=== PATIENT | male | born 1930 | race Caucasian/White ===

== ENCOUNTER → 2016-10-14 | Outpatient (CLI) | payer MEDICARE ==
[2016-04-01 11:00] VITALS: BP 108/54
[~2016-10-14] MED LIST: AMLO5TAB2 PO; ASPI-482 PO; ATOR10TA PO; BIOT25005 PO; CHOL10003 PO; DOCU-27 PO; LORA0.5T PO; METO-269 PO; MULT-208 PO; NITR0.4T6 SL; OMEG1CAP6 PO; OMEP20TA63 PO; ZOLP10TA PO
--- NOTE | 2016-10-15 08:20 | RAD ---
CT chest without IV contrast History: Follow-up lung cancer, no new symptoms. Comparison: None. Technique: Helical CT of the chest was performed without intravenous contrast. Axial, sagittal, and coronal reconstructions were obtained. One or more of the following individualized dose reduction techniques were utilized for the study: Automated exposure control Adjustment of mA and/or kV according to patient's size Use of iterative reconstruction technique. Findings: Evaluation of vascular structures and for lymphadenopathy, especially for hilar lymphadenopathy, is limited secondary to lack of intravenous contrast. Median sternotomy wires are present. Post CABG changes are seen. Coronary artery calcifications are present. No pericardial thickening is identified. Cardiac chambers do not appear enlarged. No mediastinal or convincing hilar lymphadenopathy is seen. There has been interval right upper lobectomy. Within the right upper lobe, now in the right upper hemithorax, there is a 4 mm soft tissue pulmonary nodule (axial image 15); this is not confidently identified on comparison study and may be new. There is a 3-4 mm soft tissue pulmonary nodule left lower lobe (axial image 40), unchanged. Scattered peripheral atelectasis versus scarring is seen in the right upper lobe and right middle lobe. No pneumothorax or pleural effusion is seen. The lateral periphery of the right hepatic lobe demonstrates interval development of 3.0 cm low-density mass. No suspicious osseous lesions are seen. Levoconvex scoliosis of the upper thoracic spine is seen. Impression: 1. Interval right upper lobectomy. 2. Right middle lobe demonstrates 4 mm soft tissue pulmonary nodule which is apparently new. Close interval follow-up is recommended. Additional unchanged left lower lobe pulmonary nodule. 3. Interval development of low-density right hepatic mass. Given history of malignancy, metastatic disease is suspected.
== END | disposition home or self-care (01) ==
LOC: CT 16:15
PROVIDERS: ATTEND Thoracic Surgery (Cardiothoracic Vascular Surgery)
DX: C34.11 Malignant neoplasm of upper lobe, right bronchus or lung (principal)
CPT/HCPCS: 71250

== ENCOUNTER → 2016-10-22 | Outpatient (CLI) | payer MEDICARE ==
[2016-04-01 11:00] VITALS: BP 108/54
--- NOTE | 2016-10-22 11:02 | RAD ---
FDG tumor localization scan, PET/CT, 10/22/2016: History: Lung cancer Following IV injection of 13.8 mCi of 18 F-FDG, imaging was performed from the skull base to the proximal thighs. The noncontrast CT component was performed for attenuation correction and anatomic localization purposes rather than for primary diagnosis. The patient's blood glucose level at the time of injection was 111 MG/DL. Comparison is made to a study from 03/19/2016. There is a 17 mm hypermetabolic skin lesion in the left temporal region along the superior margin of the anterior aspect of the left zygomatic arch. This was not evident on the previous study. There is a tiny hypermetabolic focus in the right subpectoral region, corresponding 2 a 6 mm nodule which was not evident on the previous study. This is probably a small lymph node. There is also a new small 13 x 7 mm hypermetabolic nodule in the epicardial fat along the right side of the heart and the anterior aspect of the right diaphragm. It demonstrates a maximum SUV of 4.6. There are 2 additional new small hypermetabolic foci along the right lateral margin of the heart, obscured on the CT images by artifacts arising from nearby pacing leads. The large right parahilar lung mass seen on the previous study has largely resolved. The CT component demonstrates 3 tiny right parahilar nodules. One of these nodules measures 6 mm and demonstrates low level FDG uptake. The lack of avid demonstrable uptake in these nodules is probably due to their small sizes. There is a new 3.3 cm low density lesion in the lateral aspect of the right lobe of the liver. It is markedly hypermetabolic demonstrating a maximum SUV of 10.7. GI tract and urinary tract activity is present in the abdomen and pelvis. No other hypermetabolic abdominal or pelvic lesion is seen. Physiologic uptake is seen in the gluteal and paraspinous muscles. IMPRESSION: 1. The patient's right parahilar neoplasm has markedly regressed with only a tiny residual pulmonary opacity at that level demonstrating low level FDG uptake. 2. New hypermetabolic nodules have developed in the right epicardial fat, along the right lateral margin of the heart and in the right subpectoral region compatible with metastatic disease. 3. New moderate size hypermetabolic hepatic mass suggesting metastatic disease. 4. New hypermetabolic skin lesion in the left anterior temporal region. Clinical correlation is suggested.
== END | disposition home or self-care (01) ==
LOC: PETSC 12:05
PROVIDERS: ATTEND Internal Medicine Hematology & Oncology
DX: C34.11 Malignant neoplasm of upper lobe, right bronchus or lung (principal)
CPT/HCPCS: 78815; A9552

== ENCOUNTER → 2016-11-09 | Outpatient (CLI) | payer MEDICARE ==
[~2016-11-09] VITALS: Ht 165.1 cm; Wt 59.0 kg
[2016-11-09] VITALS (10 sets, daily range): BP systolic 102–167; BP diastolic 46–77
[~2016-11-09] MED LIST changes: +LIDOCAINE 1% / SOD BICARB 8.4% 20 ML VIAL. IJ ONE; +MIDAZOLAM HCL/PF 2 MG/2 ML VIAL. IV ONE; +MIDAZOLAM HCL/PF 2 MG/2 ML VIAL. ONE; +fentaNYL PF VIAL 100 MCG/2 ML VIAL IM ONE; +fentaNYL PF VIAL 100 MCG/2 ML VIAL IV ONE; +fentaNYL PF VIAL 100 MCG/2 ML VIAL ONE
[2016-11-09 08:52] LABS: BASO # 0.1 x10^3/uL (0.0-0.2); BASO % 1 % (0-3); EOS % 3 % (0-3); HEMATOCRIT 35.1 % (39.0-53.0); HEMOGLOBIN 11.5 g/dL (13.0-17.5); LYMPH % 15 % (24-48); MEAN CORPUSCULAR HEMOGLOBIN 32 pg (25-35); MEAN CORPUSCULAR HGB CONC 33 g/dL (31-37); MEAN CORPUSCULAR VOLUME 98 fL (79-100); MONO % 12 % (0-9); NEUT % 69 % (31-73); PLATELET COUNT 218 x10^3/uL (140-400); RED CELL DISTRIBUTION WIDTH 14.2 % (11.5-14.5); WHITE BLOOD COUNT 6.9 x10^3/uL (4.0-11.0)
[2016-11-09 09:01] LABS: POTASSIUM 4.5 mmol/L (3.5-5.1)
[2016-11-09 09:27] LABS: PROTHROMBIN TIME PATIENT 12.4 SEC (11.7-14.0)
--- NOTE | 2016-11-09 10:37 | PDOC ---
MODERATE SEDATION ASSESSMENT RISKS/ALTERNATIVES Risks/Alternatives Risks and alternatives of this type of sedation and procedure discussed with: RISK/ALTERNATIVES: Patient H & P ON CHART H & P H & P on chart and reviewed for co-morbid conditions and appropriate labs. H&P ON CHART: Yes STATUS PREG STATUS ASSESSED: N/A MEDS/ALLERGIES REVIEWED Meds/Allergies Reviewed Medications and Allergies including time and route of recently administered narcotics and sedatives. MEDS/ALLERGIES REVIEWED: Yes ASA RATING ASA RATING: III AIRWAY ASSESSMENT Airway Assessment Airway patency, oral function limitations, presence of caps, crowns, dentures, partials, and ability to extend neck assessed. AIRWAY ASSESSMENT: Yes MALLAMPATI SCORE MALLAMPATI SCORE: II PRE-SEDATION ASSESSMENT PRE-SEDATION ASSESSMENT: Yes BECKY KUO MD November 09, 2016 10:37
--- NOTE | 2016-11-09 10:40 | PDOC ---
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 S/P rt upper lobectomy. Now with PET positive liver lesion, c/w met disease. Image guided liver lesion bx requested for tumor genetic markers. Post-Procedure Diagnosis Post-Procedure Diagnosis Same Procedure Performed Procedure Performed CT guided bx right lobe liver lesion Type of Anesthesia Type of Anesthesia Local + Mod sedation Estimated Blood Loss EBL: Trace Specimens Specimans 5 18G core bx to path in formalin Condition of Patient Condition of Patient Stable. No apparent complication. Disposition Disposition Home from [facility] post recovery, if no problems. F/u with Dr Hays. Full report to follow. BECKY KUO MD November 09, 2016 10:40
--- NOTE | 2016-11-09 10:47 | PDOC1 ---
History and Physical Date of Procedure Date of Admission 11/09/[address] guided right lobe liver lesion bx Indication Indication 86 YO male with right upper lung adenoCA, s/p right upper lobectomy 03/21/16. Now with PET positive metastases, including rt lobe liver lesion. Image guided liver lesion bx requested for tumor genetic markers. Past Medical History Past Medical History See Nursing Pre procedure PMH Past Surgical History Past Surgical History See Nursing Pre procedure PSH---includes right upper lobectomy 03/26/16. Current Medications Current Medications Current Medications Fentanyl Citrate (Fentanyl 2ml Vial) 100 mcg STK-MED ONCE .ROUTE ; Start at 09:54; Stop 11/09/16 at 09:55; Status DC Midazolam HCl (Versed) 2 mg STK-MED ONCE .ROUTE ; Start 11/09/16 at 09:54; Stop 11/09/16 at 09:55; Status DC Lidocaine/Sodium Bicarbonate (Buffered Lidocaine 1%) 20 ml STK-MED ONCE IJ ; Start 11/09/16 at 09:56; Stop 11/09/16 at 09:57; Status DC Lidocaine/Sodium Bicarbonate (Buffered Lidocaine 1%) 20 ml 1X ONCE IJ Last administered on 11/09/16t 10:23; Start 11/09/16 at 10:15; Stop 11/09/16 at 10:16 ; Status DC Fentanyl Citrate (Fentanyl 2ml Vial) 100 mcg 1X ONCE IM ; Start 11/09/16 at 10: 15; Stop 11/09/16 at 10:26; Status DC Midazolam HCl (Versed) 2 mg 1X ONCE IV Last administered on 11/09/16t 10:24; Start 11/09/16 at 10:15; Stop 11/09/16 at 10:16; Status DC Fentanyl Citrate (Fentanyl 2ml Vial) 75 mcg 1X ONCE IV ; Start 11/09/16 at 10: 30; Stop 11/09/16 at 10:31; Status DC Active Scripts Active Reported Colace (Docusate Sodium) 100 Mg Capsule 100 Mg PO HS Fish Oil 1,000 Mg Capsule ([place]-3 Fatty Acids/Fish Oil) 1 Each Capsule 4 Each PO DAILY Lipitor (Atorvastatin Calcium) 10 Mg Tablet 0.5 Tab PO DAILY Vitamin D3 (Cholecalciferol (Vitamin D3)) 1,000 Unit Tablet 1 Tab PO DAILY Toprol Xl (Metoprolol Succinate) 50 Mg Tab.er.24h 1 Tab PO BID Lorazepam 0.5 Mg Tablet 1 Tab PO BID PRN Multi-Day Vitamins (Multivitamin) 1 Each Tablet 1 Tab PO DAILY Ambien (Zolpidem Tartrate) 10 Mg Tablet 10 Mg PO HS PRN NITROGLYCERIN SubLingual (Nitroglycerin) 0.4 Mg Tab.subl 0.4 Mg SL PRN Q5MIN PRN Prilosec Otc (Omeprazole Magnesium) 20 Mg Tablet.dr 20 Mg PO DAILY Allergies Allergies: Coded Allergies: diltiazem (Verified Allergy, Intermediate, 03/26/16) Physical Exam Vital Signs Vital Signs Date Time Temp Pulse Resp B/P (MAP) Pulse Ox O2 Delivery O2 Flow Rate FiO2 11/09/16 10:20 78 11 98 Nasal Cannula 2.0 11/09/16 09:04 98.3 146/68 (94) 98.3 Lungs: Clear to auscultation Heart: Regular rate Psych/Mental Status: Mental status NL Diagnostic Data/Imaging Images PMC PET scan from 10/22/16 personally reviewed. Assessment Assessment 86 YO male s/p right upper lobectomy for adenoCA of lung. Now with PET revealing metastatic disease, including 3.3 cm lesion within right lobe liver. Image guided bx requested for genetic markers. Problems: Plan Plan CT guided bx PET positive right lobe liver lesion BECKY KUO MD November 09, 2016 10:47
--- NOTE | 2016-11-10 06:47 | RAD ---
CT-guided biopsy of PET positive right lobe liver lesion Indication: 86-year-old male with history of lung adenocarcinoma, status post right upper lobectomy in March of last year. Recent [facility] PET scan from 10/23/2015 revealed hypermetabolic lesions consistent with metastatic disease, including a 3.5 cm lesion within right lobe of liver. Image guided biopsy of the right lobe liver lesion has been requested for genetic tumor markers. Anesthesia: 21 minutes moderate sedation was provided utilizing a total of 1.5 mg Versed and 75 mcg fentanyl, IV. The patient was appropriately monitored by a qualified independent observer throughout the time of moderate sedation. Consent: The procedure was explained in its entirety to the patient and/or the patient's designated regional sales representative by a member of the treatment team. This included a discussion of risks and benefits and acceptable alternatives to the procedure, as well as expected consequences of no treatment at all. Discussion of risks included, but was not limited to, those that are most frequent and those that are rare, but possibly severe or life-threatening, as well as the possibility of unforeseen complications. Procedure: Informed consent was obtained from the patient. He was placed supine on the CT scanner. Preliminary noncontrast CT images were obtained through liver. Those images confirmed the presence of a hypodense subcapsular lesion measuring 35 mm in size within lateral aspect right lobe of liver. An overlying right lateral skin site suitable for CT-guided biopsy of the lesion was selected and marked. That area was prepped and draped in usual sterile fashion. Moderate sedation was provided with IV Versed and fentanyl. Using aseptic technique, local anesthesia, and CT guidance, a 17-gauge guide needle was successfully advanced into peripheral aspect of the hypodense lesion. A total of 5 18-gauge core biopsy samples were then obtained. Biopsy material was submitted in formalin to pathology. Hemostasis was achieved with autologous clot introduced through the biopsy guide needle, which was then removed. Patient tolerated the procedure well without apparent complication. Completion CT images revealed no evidence of significant postbiopsy bleeding. Impression: Successful, uneventful CT-guided biopsy of hypodense, PET positive, right lobe liver lesion, as described. PQRS Compliance Statement: One or more of the following individualized dose reduction techniques was utilized for this procedure: 1. Automated exposure control. 2. Adjustment of MA and/or KV according to patient size. 3. Iterative reconstruction technique.
== END | disposition home or self-care (01) ==
LOC: INTRAD 08:16
PROVIDERS: ATTEND Internal Medicine Hematology & Oncology
DX: K76.9 Liver disease, unspecified (principal); I10 Essential (primary) hypertension; E78.00 Pure hypercholesterolemia, unspecified; I25.10 Atherosclerotic heart disease of native coronary artery without angina pectoris; M19.90 Unspecified osteoarthritis, unspecified site; Z85.118 Personal history of other malignant neoplasm of bronchus and lung; Z98.41 Cataract extraction status, right eye; Z98.42 Cataract extraction status, left eye; Z72.89 Other problems related to lifestyle; Z72.0 Tobacco use; Z87.891 Personal history of nicotine dependence
CPT/HCPCS: 36415; 47000; 77012; 80048; 85027; 85610; J2250; J3010

== ENCOUNTER → 2017-01-28 | Outpatient (CLI) | payer MEDICARE ==
[2016-11-09 12:18] VITALS: BP 125/67
[~2017-01-28] MED LIST changes: -BIOT25005 PO; +BIOT25006 PO; +DOCU-109 PO; -DOCU-27 PO; -LIDOCAINE 1% / SOD BICARB 8.4% 20 ML VIAL. IJ ONE; -MIDAZOLAM HCL/PF 2 MG/2 ML VIAL. IV ONE; -MIDAZOLAM HCL/PF 2 MG/2 ML VIAL. ONE; +NITR0.4T22 SL; -NITR0.4T6 SL; -fentaNYL PF VIAL 100 MCG/2 ML VIAL IM ONE; -fentaNYL PF VIAL 100 MCG/2 ML VIAL IV ONE; -fentaNYL PF VIAL 100 MCG/2 ML VIAL ONE
--- NOTE | 2017-01-28 12:22 | RAD ---
Indication restaging lung cancer. PET/CT was performed from the skull through the proximal thigh.. CT was performed primarily for attenuation and localization purposes as opposed to primary diagnostic purposes. Note is made of a previous examination 10/22/2016. 14.2 mCi of FDG was administered. Blood sugar during the examination was ordered 130. On CT the visualized brain appears unremarkable. No significant finding is seen in the neck. There is a small mass in the right epicardial fat pad.. No dominant soft tissue mass in either lung is seen. In the abdomen there is a right renal cyst. There is a mass in the right lobe of the liver but smaller than on the previous exam compatible with a positive therapeutic response. No new finding is seen in the abdomen or pelvis. There is probable cholelithiasis On PET the FDG is physiologically distributed in the brain. No abnormal activity is seen in the neck. The small mass in the epicardial fat pad is mildly FDG avid. Maximum SUV 3.5. This is similar to the previous examination where the maximum SUV was 3.2. The mass in the right lobe of the liver demonstrates a maximum SUV of 7.3 representing improvement relative to the previous exam when the corresponding member was 10.6. This is compatible with a positive therapeutic response. A new finding in the abdomen or pelvis is not seen. Note is made of considerable brown fat in the arms upper back and in the pelvis. IMPRESSION: No evidence of tumor recurrence in the chest. Mildly avid lymph node in the right epicardial fat pad is nonspecific. Hepatic mass, compatible with metastatic disease, is smaller and less FDG avid than on the previous exam compatible with a favorable therapeutic response. New metastatic disease is not seen
== END | disposition home or self-care (01) ==
LOC: PETSC 08:42
PROVIDERS: ATTEND Internal Medicine Hematology & Oncology
DX: C34.11 Malignant neoplasm of upper lobe, right bronchus or lung (principal); R16.0 Hepatomegaly, not elsewhere classified
CPT/HCPCS: 78815; A9552

== ENCOUNTER → 2017-06-24 | Outpatient (CLI) | payer MEDICARE | END | disposition home or self-care (01) | LOC: PETSC 08:03 | DX: C34.11 Malignant neoplasm of upper lobe, right bronchus or lung (principal); K80.20 Calculus of gallbladder without cholecystitis without obstruction; K76.9 Liver disease, unspecified; J01.00 Acute maxillary sinusitis, unspecified; N28.1 Cyst of kidney, acquired; R53.83 Other fatigue | CPT/HCPCS: 78815; A9552 ==

== ENCOUNTER → 2017-09-16 | Outpatient (CLI) | payer MEDICARE | END | disposition home or self-care (01) | LOC: PETSC 09:28 | DX: C34.11 Malignant neoplasm of upper lobe, right bronchus or lung (principal); J98.11 Atelectasis; I71.4 Abdominal aortic aneurysm, without rupture; N28.1 Cyst of kidney, acquired; I25.10 Atherosclerotic heart disease of native coronary artery without angina pectoris; K80.20 Calculus of gallbladder without cholecystitis without obstruction; Z98.890 Other specified postprocedural states | CPT/HCPCS: 78815; A9552 ==

== ENCOUNTER → 2018-01-20 | Outpatient (CLI) | payer MEDICARE | END | disposition home or self-care (01) | LOC: PETSC 07:26 | DX: J32.0 Chronic maxillary sinusitis (principal); N28.1 Cyst of kidney, acquired; C34.11 Malignant neoplasm of upper lobe, right bronchus or lung; I12.9 Hypertensive chronic kidney disease with stage 1 through stage 4 chronic kidney disease, or unspecified chronic kidney disease; N18.3 Chronic kidney disease, stage 3 (moderate); E78.5 Hyperlipidemia, unspecified; Z87.891 Personal history of nicotine dependence | CPT/HCPCS: 78815; A9552 ==

== ENCOUNTER 2018-02-21 09:09 | Emergency (ER) | payer MEDICARE ==
[~2018-02-21] VITALS: Ht 165.1 cm; Wt 61.9 kg
[~2018-02-21 09:09] MED LIST changes: -AMLO5TAB2 PO; +AMLO5TAB7 PO
[2018-02-21 09:16] VITALS: BP 168/75
[2018-02-21] MEDS ORDERED: SODIUM PHOSPHATES 19/7GM 133 ML ENEMA. PR ONE (09:30)
--- NOTE | 2018-02-21 09:45 | PHYS DOC ---
Past Medical History Past Medical History: Anxiety, Cancer, GERD, High Cholesterol, Hypertension, Other Additional Past Medical Histor: BLADDER/COLON/LIVER/LUNG CA. Past Surgical History: Cancer Surgery, Coronary Bypass Surgery, Pacemaker, Tonsillectomy, Other Additional Past Surgical Histo: ADENOIDS,COLON RESECTION,R UPPER LOBE REMOVAL, BLADDER Alcohol Use: None Drug Use: None Adult General Chief Complaint Chief Complaint: CONSTIPATION HPI HPI Patient is a 87 year old male who presents with constipation. Patient states his last normal bowel movement was Wednesday, 5 days earlier. He tried to use some laxative-type medication on and Wednesday and Wednesday but could not have a bowel movement. He presents the ER today complaining of the need to defecate but the inability to do so. He does not have abdominal pain. No fever or chills. No nausea or vomiting. He has otherwise been at baseline health with no recent illness. Review of Systems Review of Systems Constitutional: Denies fever HENT: Denies nasal congestion Respiratory: Denies cough or shortness of breath Cardiovascular: No additional information not addressed in HPI GI: Denies abdominal pain Integument: Denies rash or skin lesions Neurologic: Denies headache All other systems were reviewed and found to be within normal limits, except as documented in this note. Current Medications Current Medications Current Medications Medications (Trade) Dose Ordered Sig/Grace Start Time Stop Time Status Last Admin Dose Admin Sodium Monofluorophosphate (Fleet Adult) 133 ml 1X ONCE 02/21/18 09:30 02/21/18 09:31 DC 02/21/18 09:39 133 ML Allergies Allergies Allergies Coded Allergies Type Severity Reaction Last Updated Verified diltiazem Allergy Intermediate 03/26/16 Yes niacin Allergy Unknown 02/21/18 Yes ramipril Allergy Unknown 02/21/18 Yes Physical Exam Physical Exam Constitutional: Well developed, well nourished, no acute distress, non-toxic appearance. [] HENT: Normocephalic, atraumatic, bilateral external ears normal, oropharynx moist, no oral exudates, nose normal. [] Eyes: PERRLA, EOMI, conjunctiva normal, no discharge. [] Neck: Normal range of motion, no tenderness, supple, no stridor. [] Cardiovascular:Heart rate regular rhythm, no murmur [] Lungs & Thorax: Bilateral breath sounds clear to auscultation [] Abdomen: Bowel sounds normal, soft, no tenderness, no masses, no pulsatile masses. [] Skin: Warm, dry, no erythema, no rash. [] Back: No tenderness, no CVA tenderness. [] Extremities: No tenderness, no cyanosis, no clubbing, ROM intact, no edema. [] Neurologic: Alert and oriented X 3, normal motor function, normal sensory function, no focal deficits noted. [] Psychologic: Affect normal, judgement normal, mood normal. [] Current Patient Data Vital Signs Vital Signs Date Time Temp Pulse Resp B/P (MAP) Pulse Ox O2 Delivery O2 Flow Rate FiO2 02/21/18 09:16 98.2 103 20 168/75 (106) 99 Room Air 98.2 EKG EKG [] Radiology/Procedures Radiology/Procedures [] Course & Med Decision Making Course & Med Decision Making Pertinent Labs and Imaging studies reviewed. (See chart for details) 09:25: Patient is seen and examined. Normal examination including of the abdomen. Fleets enema ordered. 10:25: Patient has large bowel movement after Fleet's enema. He feels improved. Plan today is for discharge home. He is placed on a bowel regimen consisting of docusate 100 mg twice daily. Senna 8.6 mg, take 2 tablets 3 times daily scheduled until bowels are near-normal are loose. He is also prescribed fleets enema to use at home if these other medications do not relieve his symptoms. Patient is agreeable to plan of care. He is advised to follow-up with his primary care doctor in the future or return to the ER for any new or worsening symptoms. Dragon Disclaimer Dragon Disclaimer This electronic medical record was generated, in whole or in part, using a voice recognition dictation system. Departure Departure Referrals: LENNY ATKINS MD (PCP) Scripts Solange MuellerMPrafulB/Nathalia MillsBa (FLEET ENEMA) 133 Ml Enema 133 ML RC UD, #1 EACH 2 Refills Use the fleets enema as needed for constipation when the other medications prescribed are not working. Prov: NOELLE ALEJANDRO DO 02/21/18 Sennosides (SENNA) 8.6 Mg Tablet 8.6 MG PO UD, #30 TAB 1 Refill Take 2 tablets three times daily until you are having loose or near-normal bowel movements, then decrease to use as needed for constipation Prov: NOELLE ALEJANDRO DO 02/21/18 Docusate Sodium (COLACE) 100 Mg Capsule 100 MG PO BID, #60 CAP 1 Refill Prov: NOELLE ALEJANDRO DO 02/21/18 NOELLE ALEJANDRO DO Feb 21, 2018 09:45
[2018-02-21] MEDS ORDERED: NA P133E2 RC (10:26)
[2018-02-21] MEDS ORDERED: DOCU-109 PO (10:26)
[2018-02-21] MEDS ORDERED: SENN-79 PO (10:26)
== END 2018-02-21 10:50 | disposition home or self-care (01) ==
LOC: ER 09:09
DX: K59.00 Constipation, unspecified (principal); K21.9 Gastro-esophageal reflux disease without esophagitis; E78.00 Pure hypercholesterolemia, unspecified; I10 Essential (primary) hypertension; Z95.5 Presence of coronary angioplasty implant and graft; Z95.0 Presence of cardiac pacemaker; Z90.49 Acquired absence of other specified parts of digestive tract; Z88.8 Allergy status to other drugs, medicaments and biological substances; Z98.890 Other specified postprocedural states
CPT/HCPCS: 99284

== ENCOUNTER → 2018-03-24 | Outpatient (CLI) | payer MEDICARE ==
[~2018-03-24] MED LIST changes: +NA P133E2 RC; +SENN-79 PO
--- NOTE | 2018-03-24 11:58 | RAD ---
FDG tumor localization scan, PET/CT, 03/24/2018: History: Follow-up lung cancer, restaging Following IV injection of 14.8 mCi of 18 F-FDG, imaging was performed from the skull base to the proximal thighs. The noncontrast CT component was performed for attenuation correction and anatomic localization purposes rather than for primary diagnosis. The patient's blood glucose level at the time of injection was 132 MG/DL. Comparison is made to a study from 01/20/2018. Physiologic activity is evident in the neck. No hypermetabolic neck abnormality is seen. There is a hypermetabolic right subpectoral nodule. It currently measures approximately 11 mm in width compared to a measurement of 16 mm on the 01/20/2018 study. It demonstrates a maximum SUV of 2.3 compared to a value of 16.6 on the previous study. There is additional small focus of increased metabolic activity in the lateral right mid chest probably involving the pleura or chest wall. No definite corresponding mass is seen. The maximum SUV is 2.9. In retrospect this was clearly visible on the previous study with a maximum SUV of 2.3. No hypermetabolic pulmonary or mediastinal abnormality is seen. There are scattered unchanged linear parenchymal opacities compatible with scars. Increased activity in the region of the patient's left-sided pacemaker generator is compatible with attenuation correction artifact. There is a hypermetabolic mass in the lateral aspect of the right lobe of the liver which measures 4.0 cm in greatest diameter on the current CT images compared to a measurement of 3.3 cm on the previous study. It demonstrates a maximum SUV of 16.5 compared to a measurement of 13.7 on the previous study. Just superior to the level this hepatic mass there are 2 small hypermetabolic foci projected along the surface of the right lobe of the liver. Due to normal motion at the level the diaphragm it is not clear whether these involve the surface of the liver, the adjacent diaphragm or pleura. These are faintly visible in retrospect on the previous study and have progressed. Normal GI tract and urinary tract activity is present in the abdomen and pelvis. No intra-abdominal or pelvic hypermetabolic mass is seen. Again noted is increased activity involving the left lateral gluteal musculature. This has increased since the previous study. No underlying mass is evident. This likely represents an injection site. Incidental note is made of cholelithiasis. There are surgical sutures related to the rectosigmoid colon. There is extensive calcific plaquing of the aorta and its branches including the coronary arteries. There are ongoing paranasal sinus opacities compatible with chronic sinusitis. IMPRESSION: 1. The hypermetabolic right subpectoral nodule has decreased in size and is slightly less hypermetabolic compared to the 01/20/2018 exam. 2. The liver lesion has increased in size and the degree of FDG uptake. 3. Worsening small hypermetabolic foci along the surface of the right lobe of the liver and right pleura as described above.
== END | disposition home or self-care (01) ==
LOC: PETSC 12:09
PROVIDERS: ATTEND Internal Medicine Hematology & Oncology
DX: K80.20 Calculus of gallbladder without cholecystitis without obstruction (principal); K76.9 Liver disease, unspecified; Z85.118 Personal history of other malignant neoplasm of bronchus and lung
CPT/HCPCS: 78815; A9552

== ENCOUNTER → 2018-05-26 | Outpatient (CLI) | payer MEDICARE ==
[~2018-05-26] MED LIST changes: -SENN-79 PO; +SENN-80 PO
--- NOTE | 2018-05-26 11:30 | RAD ---
FDG tumor localization scan, PET/CT, 05/26/2018: History: Restaging lung and colon cancer Following IV injection of 13.9 mCi of 18 F-FDG, imaging was performed from the skull base to the proximal thighs. The noncontrast CT component was performed for attenuation correction and anatomic localization purposes rather than for primary diagnosis. The patient's blood glucose level at the time of injection was 123 MG/DL. Comparison is made to a study from 03/24/2018. Physiologic activity is evident in the neck. The subpectoral nodule in the right upper chest has increased in size. It is partially obscured by streak artifacts on the CT component but appears to measure only 16 mm. It is hypermetabolic with a maximum SUV of 25, compared to a value of approximately 10 on the previous study. There is a tiny adjacent hypermetabolic focus involving the chest wall just posteromedial to the subpectoral nodule. It demonstrates a maximum SUV of approximately 3, similar to that seen on the previous study. No abnormal pulmonary FDG uptake is seen. There is an attenuation correction artifact along the left anterior chest wall adjacent to a transvenous pacing device. No hypermetabolic mediastinal adenopathy is evident. Normal GI tract and urinary tract activity is present in the abdomen and pelvis. The hypermetabolic lesion in the lateral aspect of the right lobe of liver appears to have increased slightly in size. It demonstrates a maximum SUV of 20 compared to a value of 16.5 on the previous study. No new hepatic abnormality is detected. There are 2 hypermetabolic foci along the lateral margin of the right lobe of the liver near and just superior to this hypermetabolic liver lesion. It remains unclear whether these lie on the surface of the liver or within the pleura or adjacent chest wall, due to normal diaphragmatic motion producing difficulties in precise registration. The degree of FDG uptake in these lesions has increased slightly with a maximum SUV of 5.7 compared to value of 5.0 on the previous study. Incidental CT findings include the presence of fluid and debris in the right maxillary sinus compatible with sinusitis. There is considerable patient motion artifact on the CT component. There is an infrarenal abdominal aortic aneurysm measuring approximately 3.4 cm in width. IMPRESSION: 1. Interval increase in size and hypermetabolic activity of the right subpectoral nodule since 05/26/2018. 2. The liver lesion has also increased slightly in size and the degree of FDG uptake. 3. Small hypermetabolic lesions along the right lateral margin of the liver persist with slightly greater FDG uptake than on the previous study.
== END | disposition home or self-care (01) ==
LOC: PETSC 07:16
PROVIDERS: ATTEND Internal Medicine Hematology & Oncology
DX: I71.4 Abdominal aortic aneurysm, without rupture (principal); K76.89 Other specified diseases of liver; R91.1 Solitary pulmonary nodule; R53.83 Other fatigue; Z85.118 Personal history of other malignant neoplasm of bronchus and lung; Z85.038 Personal history of other malignant neoplasm of large intestine
CPT/HCPCS: 78815; A9552

== ENCOUNTER → 2018-09-08 | Outpatient (CLI) | payer MEDICARE ==
[~2018-09-08] MED LIST changes: +ACET500T68 PO; +AMLO5TAB10 PO; -AMLO5TAB7 PO; +ASCO500C9 PO; +FOLI1TAB16 PO; +ONDA8TAB9 PO; +VITA1TAB19 PO; +ZOLP5TAB PO
--- NOTE | 2018-09-08 13:23 | RAD ---
PET ONCOLOGY CLINICAL INDICATION: Lung cancer. Follow-up at. FDG PET-CT of the Body TECHNIQUE: The patient received an IV injection of 15 mCi 18F-FDG in the right antecubital fossa . After an initial uptake phase of approximately 60-90 minutes, a CT scan without oral contrast, without IV contrast was acquired. Subsequently, positron emission tomography images from the skull base to mid thigh were obtained. CT, PET and fused images were reconstructed in transaxial, coronal, and sagittal projections and interpreted from a workstation. The patient's plasma glucose was 122 mg/dl. PRIOR STUDIES: 05/26/2018 CORRELATIVE STUDIES: There are no appropriate correlative studies FINDINGS: CT: Limited exam due to lack of IV contrast. Noncontrast appearance through the head and neck within normal limits. No enlarged axillary or mediastinal adenopathy. Evaluation of hilar lymphadenopathy is limited due to lack of IV contrast. Heart is normal in size with no pericardial or pleural effusion. Pacemaker leads are seen in the right heart. Diffuse atherosclerotic disease seen of the aorta. Motion artifact is seen in the lungs abutting optimal evaluation. No apparent focal mass or nodule is seen. Interval increase in the size of right anterolateral chest wall soft tissue nodule measuring 2.7 x 2.4 cm, previously 2.0 x 1.4 cm. Interval increase in the size of right hepatic lobe mass measuring 5.0 x 4.0 cm, previously 4.0 x 2.6 cm. Noncontrast appearance of the spleen, gallbladder, pancreas, adrenals within normal limits. Simple cyst is seen in the right kidney measuring 4.0 cm. Diffuse atherosclerotic disease of the abdominal aorta. No enlarged retroperitoneal or pelvic adenopathy. No free pelvic fluid or ascites. No bowel obstruction. Stable partial opacification of the right maxillary sinus. No suspicious bony lesion. Urinary bladder within normal limits. Anastomotic sutures are seen in the sigmoid colon. Questionable 1.7 cm lesion is seen in the right occipital lobe. PET: Increased metabolic activity seen in the right anterolateral chest wall nodule measuring 18 SUV. Mild increased metabolic activity is seen in the pleural-based nodule in the right upper lobe posterior to the right chest wall nodule with SUV max of 3.3. Increased metabolic activity in the Right hepatic lobe lesion with SUV max of 13. Increased metabolic activity in the Manny hepatis lymph node with SUV max of 8. Increased focal metabolic activity in the posterior medial right occipital lobe which corresponds to a questionable masslike lesion with SUV max of 15. IMPRESSION: 1. Interval increase in the size of right chest wall nodule and right hepatic lobe lesion both demonstrating high metabolic activity as described above. 2. Focal activity in the right occipital lobe with questionable mass on the CT highly concerning for brain metastasis. Electronically signed by: Lucio Meneses DO (09/08/2018 1:20 PM) [facility]
== END | disposition home or self-care (01) ==
LOC: PETSC 11:00
PROVIDERS: ATTEND Internal Medicine Hematology & Oncology
DX: C34.11 Malignant neoplasm of upper lobe, right bronchus or lung (principal); I70.0 Atherosclerosis of aorta
CPT/HCPCS: 78815; A9552

== ENCOUNTER → 2018-09-19 | Outpatient (CLI) | payer MEDICARE ==
[~2018-09-19] VITALS: Ht 165.1 cm; Wt 60.3 kg
[~2018-09-19] MED LIST changes: +CONTRAST GIVEN. MC PRN; +HYDROmorphone 2 MG/ML VIAL IV PRN; +IOHEXOL 300 MG/ML 100ML VIAL. IV ONE; +IV RINGERS,LACTATED 1000ML 1,000 ML IV SCH; +LIDOCAINE 1% PF 2 ML VIAL. ID PRN; +MORPHINE SULFATE 2 MG/ML VIAL. IV PRN; +ONDANSETRON PF 4 MG/2 ML VIAL. IV PRN; +PROCHLORPERAZINE 10 MG/2 ML VIAL. IV PRN; +SODIUM BICARBONATE VIAL 150 MEQ in IV STERILE WATER 1,000 ML IV ONE; +fentaNYL PF VIAL 100 MCG/2 ML VIAL IV PRN
[2018-09-19 09:21] VITALS: BP 146/76
--- NOTE | 2018-09-19 12:10 | RAD ---
CT of the head with without contrast, 09/19/2018: HISTORY: Lung cancer, possible brain metastasis Multidetector CT imaging was performed prior to and following an IV bolus injection of iodinated contrast material. The study is correlated with the PET/CT exam of 09/08/2018. There is mild cerebral atrophy. The ventricles are within normal limits in size. There is no shift of the midline structures. A small lucency in the right thalamus is compatible with an old lacunar infarct. On the precontrast scans there is a 2 cm nodule in the posterior medial aspect of the right occipital lobe which is of slightly higher density than the adjacent brain. There is mild adjacent deep white matter lucency compatible with vasogenic edema. The occipital horn of the right lateral ventricle is smaller than on the left. This corresponds in location to the hypermetabolic nodule seen on the recent PET exam. On the arterial phase CT images there is only slight enhancement of this lesion. A hypovascular metastasis is suspected. No other intra-axial or extra-axial mass is identified. There is moderate debris in the right maxillary sinus. There is mild mucosal thickening in both ethmoid sinuses. IMPRESSION: 1. Faint right occipital lobe lesion corresponding to the hypermetabolic lesion seen on the recent PET/CTs exam. A cerebral metastasis is most likely. An infectious or rarely, a subacute ischemic process is less likely. CT follow-up is suggested. Delayed postcontrast scans may better delineate this lesion. 2. Old right thalamic lacunar infarct. 3. Paranasal sinusitis with dominant involvement of the right maxillary sinus. PQRS Compliance Statement: One or more of the following individualized dose reduction techniques were utilized for this examination: 1. Automated exposure control 2. Adjustment of the mA and/or kV according to patient size 3. Use of iterative reconstruction technique Electronically signed by: Zurdo Delgado MD (09/19/2018 12:07 PM) [facility]
[2018-09-19 13:01] VITALS: BP 102/55
[2018-09-19 14:43] VITALS: BP 129/63
[2018-09-19 15:03] VITALS: BP 124/64
--- NOTE | 2018-09-19 15:10 | NUR ---
Pt VSS. Pt denies any pain or sob. Left FA IV dc'd with no complications, tip intact. Pt walked to out patient entrance.
== END | disposition home or self-care (01) ==
LOC: SURG 08:01
PROVIDERS: ATTEND Internal Medicine Hematology & Oncology
DX: G31.89 Other specified degenerative diseases of nervous system (principal); J32.9 Chronic sinusitis, unspecified; C34.11 Malignant neoplasm of upper lobe, right bronchus or lung
CPT/HCPCS: 70470; Q9967

== ENCOUNTER → 2018-11-10 | Outpatient (CLI) | payer MEDICARE ==
[2018-09-19 15:03] VITALS: BP 124/64
[~2018-11-10] MED LIST changes: -CONTRAST GIVEN. MC PRN; -HYDROmorphone 2 MG/ML VIAL IV PRN; -IOHEXOL 300 MG/ML 100ML VIAL. IV ONE; -IV RINGERS,LACTATED 1000ML 1,000 ML IV SCH; -LIDOCAINE 1% PF 2 ML VIAL. ID PRN; -MORPHINE SULFATE 2 MG/ML VIAL. IV PRN; -ONDANSETRON PF 4 MG/2 ML VIAL. IV PRN; -PROCHLORPERAZINE 10 MG/2 ML VIAL. IV PRN; -SODIUM BICARBONATE VIAL 150 MEQ in IV STERILE WATER 1,000 ML IV ONE; -fentaNYL PF VIAL 100 MCG/2 ML VIAL IV PRN
--- NOTE | 2018-11-10 10:16 | RAD ---
FDG tumor localization scan, PET/CT, 11/10/2018: History: Restaging lung cancer Following IV injection of 14.7 mCi of 18 F-FDG, imaging was performed from the skull base to the proximal thighs. The noncontrast CT component was performed for attenuation correction and anatomic localization purposes rather than for primary diagnosis. The patient's blood glucose level at the time of injection was 121 MG/DL. Comparison is made to a study from 09/08/2018. There is a persistent hypermetabolic mass in the right occipital lobe posteriorly demonstrating a maximum SUV of 16.5. A similar appearance was present on the previous study. There is a persistent hypermetabolic subpectoral nodule on the right demonstrating a maximum SUV of 21.3. Its maximum SUV on the previous study was 18. It is of similar size when compared to the previous study. There is a nearby small hypermetabolic pulmonary nodule again noted. An additional hypermetabolic pleural nodule is present located posterolaterally in the right lower chest. The maximum SUV of this posterolateral nodule is 4.9. These pleural nodules are more prominent than on the previous study. A large hypermetabolic mass in the lateral aspect of the right lobe of the liver has increased in size. Its maximum SUV is currently 23 compared to a value of 13 on the previous study. There are a couple of tiny nearby mildly hypermetabolic pleural foci. There is a hypermetabolic focus at the portacaval level. It appears to correspond to an enlarged portacaval lymph node. It has increased in size and now demonstrates a maximum SUV of 18 compared to a value of 8 on the previous study. Normal GI tract and urinary tract activity is present in the abdomen and pelvis. No additional hypermetabolic metabolic abdominal or pelvic lesion is seen. Incidental CT findings include extensive calcific plaquing of the aorta and its branches including the coronary arteries. A small infrarenal abdominal scanner them is again noted. 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
--- NOTE | 2018-11-10 16:36 | RAD ---
CT of the head without contrast, 11/10/2018: HISTORY: Brain lesion Multidetector CT imaging was performed without IV contrast as requested. This limits the evaluation of brain lesions. There is cerebral atrophy. The ventricles are within normal limits in size. There is no shift of the midline structures. A small lucency in the right thalamus is compatible with an old infarct. Decreased density in the medial aspect of the right occipital lobe is unchanged and again suggests vasogenic edema. A small dense peripheral posteromedial nodule measuring approximately 2 cm in greatest diameter is again identified and is unchanged. This is best delineated on axial image #16. This lesion was hypermetabolic on the previous FDG PET exam. No new intracranial lesion is identified. There is mucosal thickening and fluid in the right maxillary sinus compatible with ongoing sinusitis. There is mild mucosal thickening in both ethmoid sinuses. IMPRESSION: 1. Unchanged right occipital lobe lesion, likely on a metastatic basis. 2. No new intracranial abnormality is detected. 3. Ongoing paranasal sinusitis with dominant involvement of the right maxillary sinus. PQRS Compliance Statement: One or more of the following individualized dose reduction techniques were utilized for this examination: 1. Automated exposure control 2. Adjustment of the mA and/or kV according to patient size 3. Use of iterative reconstruction technique Electronically signed by: Zurdo Delgado MD (11/10/2018 4:34 PM) [facility]
== END | disposition home or self-care (01) ==
LOC: PETSC 07:21
PROVIDERS: ATTEND Internal Medicine Hematology & Oncology
DX: C34.11 Malignant neoplasm of upper lobe, right bronchus or lung (principal); C79.31 Secondary malignant neoplasm of brain; R91.1 Solitary pulmonary nodule; J32.0 Chronic maxillary sinusitis; J34.89 Other specified disorders of nose and nasal sinuses; G31.89 Other specified degenerative diseases of nervous system
CPT/HCPCS: 70450; 78815; A9552

== ENCOUNTER 2019-01-20 06:31 | Emergency (ER) | payer MEDICARE ==
[~2019-01-20] VITALS: Ht 165.1 cm; Wt 57.2 kg
[2019-01-20 06:35] VITALS: BP 145/75
--- NOTE | 2019-01-20 06:59 | PHYS DOC ---
Past Medical History Past Medical History: Anxiety, Cancer, GERD, High Cholesterol, Hypertension, Other Additional Past Medical Histor: BLADDER/COLON/LIVER/LUNG CA. 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 he denies any back pain, no headache. No neck pain, no hip pain. He was doing okay yesterday, however he woke up this morning with the pain on the right side rib. He denies any abdominal pain, no nausea vomiting. Review of Systems Review of Systems Constitutional: Denies fever or chills [] Eyes: Denies change in visual acuity, redness, or eye pain [] HENT: Denies nasal congestion or sore throat [] Respiratory: Denies cough or shortness of breath [] Cardiovascular: No additional information not addressed in HPI [] GI: Denies abdominal pain, nausea, vomiting, bloody stools or diarrhea [] : Denies dysuria or hematuria [] Musculoskeletal: Denies back pain or joint pain [] Integument: Denies rash or skin lesions [] Neurologic: Denies headache, focal weakness or sensory changes [] Endocrine: Denies polyuria or polydipsia [] All other systems were reviewed and found to be within normal limits, except as documented in this note. Current Medications Current Medications Current Medications Medications (Trade) Dose Ordered Sig/Grace Start Time Stop Time Status Last Admin Dose Admin Acetaminophen/ Hydrocodone Bitart (Lortab 5/325) 1 tab 1X ONCE 01/20/19 07:00 01/20/19 07:01 DC 01/20/19 07:03 1 TAB Allergies Allergies Allergies Coded Allergies Type Severity Reaction Last Updated Verified diltiazem Allergy Intermediate 03/26/16 Yes niacin Allergy Unknown 02/21/18 Yes ramipril Allergy Unknown 02/21/18 Yes Physical Exam Physical Exam Constitutional: Well developed, well nourished, no acute distress, non-toxic appearance. [] HENT: Normocephalic, atraumatic, bilateral external ears normal, oropharynx moist, no oral exudates, nose normal. [] Eyes: PERRLA, EOMI, conjunctiva normal, no discharge. [] Neck: Normal range of motion, no tenderness, supple, no stridor. [] Cardiovascular:Heart rate regular rhythm, no murmur [] Lungs & Thorax: Bilateral breath sounds clear to auscultation. Right lateral ribs tender to palpation around RIBS 7 TO 10 . NO BRUISE, NO CREPITUS, NO DEFORMITY. Abdomen: Bowel sounds normal, soft, no tenderness, no masses, no pulsatile masses. [] Skin: Warm, dry, no erythema, no rash. [] Back: No tenderness, no CVA tenderness. [] Extremities: No tenderness, no cyanosis, no clubbing, ROM intact, no edema. [] Neurologic: Alert and oriented X 3, normal motor function, normal sensory function, no focal deficits noted. [] Psychologic: Affect normal, judgement normal, mood normal. [] Current Patient Data Vital Signs Vital Signs Date Time Temp Pulse Resp B/P (MAP) Pulse Ox O2 Delivery O2 Flow Rate FiO2 01/20/19 07:03 16 01/20/19 06:35 98.1 104 145/75 (98) 96 Room Air 98.1 EKG EKG [] Radiology/Procedures Radiology/Procedures [][facility] [address] [place], [place] [id number] IMAGING REPORT Signed PATIENT: JANNETTE MARS ACCOUNT: [id number] : 1930 LOCATION: ER AGE: 88 SEX: M EXAM STATUS: REG ER ORD. PHYSICIAN: TOSHIA REYES DO REASON: fell yesterday, right side ribs pain PROCEDURE: RIBS RIGHT AND PA CHEST PA view chest x-ray and 2 view right rib detail series Clinical indications: Fell yesterday. Right-sided rib pain. FINDINGS: Nondisplaced fractures of the lateral aspect of the right eighth and ninth ribs is seen. Chest x-ray demonstrates no pneumothorax or pleural effusion or lung infiltrate. A sternotomy is evident. Atrioventricular pacemaker is present. The heart size and mediastinum and pulmonary vasculature and both tanna are otherwise unremarkable. IMPRESSION: Fractures of the lateral aspect of the right eighth and ninth ribs. Electronically signed by: Deena Pritchard MD (01/20/2019 8:14 AM) [facility] DICTATED and SIGNED BY: DEENA PRITCHARD MD DATE: 01/20/19813 Course & Med Decision Making Course & Med Decision Making Pertinent Labs and Imaging studies reviewed. (See chart for details) [] Dragon Disclaimer Dragon Disclaimer This electronic medical record was generated, in whole or in part, using a voice recognition dictation system. Departure Departure Impression: Primary Impression: Ribs, multiple fractures Disposition: 01 HOME, SELF-CARE Condition: STABLE Referrals: LENNY ATKINS MD (PCP) FOLLOW UP WITH YOUR PCP NEXT WEEK NEEDED. RETURN IF YOU HAVE SEVERE SHORTNESS OF AIR. Patient Instructions: Rib Fracture Scripts Hydrocodone/Apap 5-325 (NORCO 5-325 TABLET) 1 Each Tablet 1 TAB PO PRN Q6HRS PRN for PAIN, #15 TAB 0 Refills Prov: TOSHIA REYES DO 01/20/19 TOSHIA REYES DO Jan 20, 2019 06:59
[2019-01-20] MEDS ORDERED: HYDROcodone/APAP 5/325MG 1 TAB TABLET PO ONE (07:00)
--- NOTE | 2019-01-20 08:17 | RAD ---
PA view chest x-ray and 2 view right rib detail series Clinical indications: Fell yesterday. Right-sided rib pain. FINDINGS: Nondisplaced fractures of the lateral aspect of the right eighth and ninth ribs is seen. Chest x-ray demonstrates no pneumothorax or pleural effusion or lung infiltrate. A sternotomy is evident. Atrioventricular pacemaker is present. The heart size and mediastinum and pulmonary vasculature and both tanna are otherwise unremarkable. IMPRESSION: Fractures of the lateral aspect of the right eighth and ninth ribs. Electronically signed by: Mich Pritchard MD (01/20/2019 8:14 AM) [facility]
[2019-01-20] MEDS ORDERED: HYDR-3164 PO (08:23)
[2019-01-21] MEDS ORDERED: PEG1POWD PO (19:32)
[2019-01-21] MEDS ORDERED: SENN-121 PO (19:32)
== END 2019-01-20 08:50 | disposition home or self-care (01) ==
LOC: ER 06:31
DX: S22.41XA Multiple fractures of ribs, right side, initial encounter for closed fracture (principal); F41.9 Anxiety disorder, unspecified; K21.9 Gastro-esophageal reflux disease without esophagitis; E78.00 Pure hypercholesterolemia, unspecified; I10 Essential (primary) hypertension; Z95.0 Presence of cardiac pacemaker; Z90.89 Acquired absence of other organs; Z95.1 Presence of aortocoronary bypass graft; Z88.8 Allergy status to other drugs, medicaments and biological substances; W01.198A Fall on same level from slipping, tripping and stumbling with subsequent striking against other object, initial encounter; Y93.89 Activity, other specified; Y92.89 Other specified places as the place of occurrence of the external cause; Y99.8 Other external cause status
CPT/HCPCS: 71101; 99284

== ENCOUNTER → 2019-02-02 | Outpatient (CLI) | payer MEDICARE ==
[2019-01-21 19:35] VITALS: BP 136/81
[~2019-02-02] MED LIST changes: +HYDR-3164 PO; +PEG1POWD PO; +SENN-121 PO
--- NOTE | 2019-02-02 13:08 | RAD ---
CLINICAL HISTORY: TREATMENT MONITORING FOR LUNG CANCER. INDICATION: Restaging. COMPARISON: Head CT 11/10/2018, 09/08/2018 TECHNIQUE: Location of scan: [facility] Radiopharmaceutical Dose: 13.6 mCi F-18 FDG intravenous Blood glucose at time of study: 123 FDG uptake time = 60 minutes. Images were obtained from the mid head to the mid thighs. A low dose, noncontrast CT study was performed for the purpose of attenuation correction and anatomic localization. FINDINGS: Head and Neck: The right occipital lesion is best seen on the nonattenuated corrected images given the motion artifact on the CT resulting in abnormal attenuation correction within the head and neck. Otherwise physiologic activity is seen within the head and neck. Chest: A right retropectoral mass/lymph node measures 2.7 x 2.4 cm, grossly stable in size with an SUV max of 17.6, previously 21.3. Adjacent hypermetabolic pulmonary nodule is pleural-based, with an SUV max of 6.3. A pleural-based posterolateral right lateral lung nodule is grossly stable in size with an SUV max of 5.9. There are now enlarged and hypermetabolic mediastinal lymph nodes. For example a lymph node posterior to the esophagus has an SUV max of 11. A 6 mm right upper lobe lung nodule has an SUV max of 1.3. Abdomen and Pelvis: A right hepatic lobe lesion has an SUV max of 19.7. This has also increased in size measuring up to 14 cm, when remeasured on prior CT measures approximately 10 cm. A portacaval hypermetabolic lymph node/mass has an SUV max of 18.7, previously 18. This has increased in size measuring approximately 3.8 cm, previously approximately 3.2 cm. Several additional hypermetabolic para-aortic/retroperitoneal lymph nodes are seen for example 1.7 x 1.2 cm left periaortic lymph node has an SUV max of 13.5. Physiologic activity is seen within the remainder of the liver, spleen, renal collecting system and bowel. 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 Dense atherosclerotic calcifications are seen. Skeletal: Multilevel degenerative changes of the spine are seen with associated increased uptake. No definite suspicious focus of increased metabolic activity within the visualized osseous structures.. Reference SUV Values: Mediastinal SUV Max: 2.3 Liver SUV Max: 3.2 IMPRESSION: 1. Right occipital hypermetabolic lesion is again seen, limited in evaluation due to motion artifact. 2. Hypermetabolic right retropectoral mass and lung nodules are also stable 3. There is now mediastinal and hilar lymphadenopathy. 4. Interval increase in the hypermetabolic hepatic mass. 5. In addition the hypermetabolic portacaval mass/lymph node has increased in size. Several new hypermetabolic/enlarged retroperitoneal lymph nodes are seen. 6. These findings are concerning for progression of metastatic disease. Radiation Dosimetry: The radiopharmaceutical used for this exam delivers approximately 0.7 mSv/mCi (70 mRem/mCi) Source: ICRP Publication 106
== END | disposition home or self-care (01) ==
LOC: PETSC 09:10
PROVIDERS: ATTEND Internal Medicine Hematology & Oncology
DX: C34.11 Malignant neoplasm of upper lobe, right bronchus or lung (principal); K76.9 Liver disease, unspecified; R53.83 Other fatigue; R91.8 Other nonspecific abnormal finding of lung field; R59.0 Localized enlarged lymph nodes; R16.0 Hepatomegaly, not elsewhere classified
CPT/HCPCS: 78815; A9552

== ENCOUNTER 2019-02-07 14:30 | Emergency (ER) | payer MEDICARE ==
[~2019-02-07] VITALS: Ht 162.6 cm; Wt 57.6 kg
--- NOTE | 2019-02-07 15:22 | PHYS DOC ---
Past Medical History Past Medical History: Anxiety, Cancer, GERD, High Cholesterol, Hypertension, Other Additional Past Medical Histor: BLADDER/COLON/LIVER/LUNG CA. Past Surgical History: Cancer Surgery, Coronary Bypass Surgery, Pacemaker, Tonsillectomy, Other Additional Past Surgical Histo: ADENOIDS, COLON RESECTION, R UPPER LOBE REMOVAL, BLADDER Alcohol Use: None Drug Use: None Adult General Chief Complaint Chief Complaint: CONSTIPATION HPI HPI Patient is a 88 year old male that presents with the chief complaint no bowel movement since evening. The patient's been taking multiple laxatives. 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 He is planning on putting him on hospice this week. Reports his pain is 2 out of 10 in severity and sharp. Also states she's been having mild nausea. Review of Systems Review of Systems Constitutional: Denies fever or chills [] Eyes: Denies change in visual acuity, redness, or eye pain [] HENT: Denies nasal congestion or sore throat [] Respiratory: Denies cough or shortness of breath [] Cardiovascular: No additional information not addressed in HPI [] GI: Reports mild abdominal pain, nausea, Denies vomiting, bloody stools or d iarrhea [] : Denies dysuria or hematuria [] Musculoskeletal: Denies back pain or joint pain [] Integument: Denies rash or skin lesions [] Neurologic: Denies headache, focal weakness or sensory changes [] Endocrine: Denies polyuria or polydipsia [] Complete systems were reviewed and found to be within normal limits, except as documented in this note. Current Medications Current Medications Current Medications Medications (Trade) Dose Ordered Sig/Grace Start Time Stop Time Status Last Admin Dose Admin Ondansetron HCl (Zofran) 4 mg 1X ONCE 02/07/19 15:45 02/07/19 15:46 DC Sodium Chloride 500 ml @ 500 mls/hr 1X ONCE 02/07/19 15:30 02/07/19 16:29 DC Allergies Allergies Allergies Coded Allergies Type Severity Reaction Last Updated Verified diltiazem Allergy Intermediate 03/26/16 Yes niacin Allergy Intermediate 02/07/19 Yes ramipril Allergy Intermediate 02/07/19 Yes Physical Exam Physical Exam Constitutional: Well developed, well nourished, no acute distress, non-toxic appearance. [] HENT: Normocephalic, atraumatic, bilateral external ears normal, oropharynx moist, no oral exudates, nose normal. [] Eyes: PERRLA, EOMI, conjunctiva normal, no discharge. [] Neck: Normal range of motion, no tenderness, supple, no stridor. [] Cardiovascular:Heart rate regular rhythm, no murmur [] Lungs & Thorax: Bilateral breath sounds clear to auscultation [] Abdomen: Bowel sounds normal, soft, mild tenderness, no masses, no pulsatile masses. [] Skin: Warm, dry, no erythema, no rash. [] Back: No tenderness, no CVA tenderness. [] Extremities: No tenderness, no cyanosis, no clubbing, ROM intact, no edema. [] Neurologic: Alert and oriented X 3, normal motor function, normal sensory function, no focal deficits noted. [] Psychologic: Affect normal, judgement normal, mood normal. [] Current Patient Data Vital Signs Vital Signs Date Time Temp Pulse Resp B/P (MAP) Pulse Ox O2 Delivery O2 Flow Rate FiO2 02/07/19 14:50 97.7 93 16 193/80 (117) 96 Room Air 97.7 Lab Values Laboratory Tests Test 02/07/19 15:34 White Blood Count 7.9 x10^3/uL (4.0-11.0) Red Blood Count 3.65 x10^6/uL (4.30-5.70) L Hemoglobin 11.7 g/dL (13.0-17.5) L Hematocrit 34.3 % (39.0-53.0) L Mean Corpuscular Volume 94 fL (79-100) Mean Corpuscular Hemoglobin 32 pg (25-35) Mean Corpuscular Hemoglobin Concent 34 g/dL (31-37) Red Cell Distribution Width 14.6 % (11.5-14.5) H Platelet Count 213 x10^3/uL (140-400) Neutrophils (%) (Auto) 80 % (31-73) H Lymphocytes (%) (Auto) 7 % (24-48) L Monocytes (%) (Auto) 12 % (0-9) H Eosinophils (%) (Auto) 0 % (0-3) Basophils (%) (Auto) 1 % (0-3) Neutrophils # (Auto) 6.3 x10^3/uL (1.8-7.7) Lymphocytes # (Auto) 0.5 x10^3/uL (1.0-4.8) L Monocytes # (Auto) 1.0 x10^3/uL (0.0-1.1) Eosinophils # (Auto) 0.0 x10^3/uL (0.0-0.7) Basophils # (Auto) 0.1 x10^3/uL (0.0-0.2) Sodium Level 136 mmol/L (136-145) Potassium Level 4.8 mmol/L (3.5-5.1) Chloride Level 99 mmol/L (98-107) Carbon Dioxide Level 24 mmol/L (21-32) Anion Gap 13 (6-14) Blood Urea Nitrogen 38 mg/dL (8-26) H Creatinine 1.9 mg/dL (0.7-1.3) H Estimated GFR (Cockcroft-Gault) 33.8 BUN/Creatinine Ratio 20 (6-20) Glucose Level 116 mg/dL (70-99) H Calcium Level 9.6 mg/dL (8.5-10.1) Total Bilirubin 0.5 mg/dL (0.2-1.0) Aspartate Amino Transferase (AST) 85 U/L (15-37) H Alanine Aminotransferase (ALT) 80 U/L (16-63) H Alkaline Phosphatase 411 U/L (46-116) H Total Protein 7.4 g/dL (6.4-8.2) Albumin 3.2 g/dL (3.4-5.0) L Albumin/Globulin Ratio 0.8 (1.0-1.7) L Laboratory Tests 02/07/19 15:34 Laboratory Tests 02/07/19 15:34 EKG EKG [] Radiology/Procedures Radiology/Procedures [] IMAGING REPORT Signed PATIENT: JANNETTE MARS FACCOUNT: [id number] : 1930 LOCATION: ER AGE: 88 SEX: M EXAM STATUS: REG ER ORD. PHYSICIAN: LENNY FERRO APRN REASON: abd pain PROCEDURE: CT ABDOMEN PELVIS WO CONTRAST Exam: CT abdomen and pelvis without contrast INDICATION: Abdominal pain TECHNIQUE: Sequential axial images through the abdomen and pelvis obtained without IV contrast. Sagittal and coronal reformatted images were reconstructed from the axial data and reviewed. Comparisons: PET/CT 02/02/2019, FINDINGS: Heart is enlarged. Pacer with leads terminating in the right atrium and ventricle. Trivessel coronary artery calcifications are noted. No pericardial effusion. Strandy opacity at the right lower lobe likely representing atelectasis or scarring. Evaluation of the solid organs is limited secondary to noncontrast technique. Ill-defined hypoattenuating liver masses in the right hepatic lobe largest measuring approximately 6.0 x 4.9 cm. These appear similar when compared to the recent prior exam. Gallstones within the gallbladder. Spleen is not enlarged. Pancreas and adrenals are unremarkable. No renal or ureteral calculi. No perinephric inflammation or hydronephrosis. Bladder is distended and appears thin walled. Prostate is not enlarged. Postsurgical changes of the sigmoid colon are noted. Remainder of the large and small bowel are unremarkable. No obstruction. No free intra-abdominal air or fluid. 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 Several enlarged left periaortic lymph nodes are noted. Multiple enlarged conglomerate rhina hepatic lymph nodes are also noted. No suspicious osseous lesion or acute fracture. Sternotomy wires again noted. IMPRESSION: 1. Redemonstration of metastatic disease in the abdomen which is not significant change from the PET scan from 5 days prior with large hypodense hepatic masses rhina hepatic and left periaortic lymphadenopathy area 2. No acute process identified within the abdomen or pelvis. Exposure: One or more of the following in the visualized dose reduction techniques were utilized for this examination: 1. Automated exposure control 2. Adjustment of the MA and/or KV according to patient size 3. Use of iterative of reconstructive technique Electronically signed by: Jing Holland MD (02/07/2019 4:23 PM) [facility] DICTATED and SIGNED BY: JING HOLLAND MD DATE: 02/07/19 3888 Course & Med Decision Making Course & Med Decision Making Pertinent Labs and Imaging studies reviewed. (See chart for details) Due to extensive abdominal history and cancer will get Ct of abdomen and labs. labs and imaging is unremarkable. Discussed with patient that he may not be having a bowel movement due to not eating enough. Patient is in agreement. Will d/c home. Dragon Disclaimer Dragon Disclaimer This electronic medical record was generated, in whole or in part, using a voice recognition dictation system. Departure Departure Impression: Primary Impression: Encounter for medical screening examination Disposition: HOME, SELF-CARE Condition: STABLE Referrals: LENNY ATKINS MD (PCP) Additional Instructions: Thank you for visiting [facility]. We appreciate you trusting us with your care. If any additional problems come up don't hesitate to return to visit us. Please follow up with your primary care provider so they can plan additional care if needed and know about the problem that you had. If symptoms worsen come back to the Emergency Department. Any concerning symptoms that start such as chest pain, shortness of air, weakness or numbness on one side of the body, running high fevers or any other concerning symptoms return to the ER. LENNY FERRO APRN Feb 07, 2019 15:22
[2019-02-07] MEDS ORDERED: IV NORMAL SALINE 500ML BAG 500 ML IV ONE (15:30)
[2019-02-07 15:33] VITALS: BP 159/69
[2019-02-07] MEDS ORDERED: ONDANSETRON PF 4 MG/2 ML VIAL. IV ONE (15:45)
[2019-02-07 15:52] LABS: BASO # 0.1 x10^3/uL (0.0-0.2); BASO % 1 % (0-3); EOS % 0 % (0-3); HEMATOCRIT 34.3 % (39.0-53.0); HEMOGLOBIN 11.7 g/dL (13.0-17.5); LYMPH # 0.5 x10^3/uL (1.0-4.8); LYMPH % 7 % (24-48); MEAN CORPUSCULAR HEMOGLOBIN 32 pg (25-35); MEAN CORPUSCULAR HGB CONC 34 g/dL (31-37); MEAN CORPUSCULAR VOLUME 94 fL (79-100); MONO % 12 % (0-9); NEUT # 6.3 x10^3/uL (1.8-7.7); NEUT % 80 % (31-73); PLATELET COUNT 213 x10^3/uL (140-400); RED BLOOD COUNT 3.65 x10^6/uL (4.30-5.70); RED CELL DISTRIBUTION WIDTH 14.6 % (11.5-14.5); WHITE BLOOD COUNT 7.9 x10^3/uL (4.0-11.0)
[2019-02-07 15:59] LABS: CALCIUM 9.6 mg/dL (8.5-10.1); CREATININE 1.9 mg/dL (0.7-1.3); GFR 33.8; POTASSIUM 4.8 mmol/L (3.5-5.1)
[2019-02-07 16:05] LABS: ALBUMIN 3.2 g/dL (3.4-5.0); ALBUMIN/GLOBULIN RATIO 0.8 (1.0-1.7); TOTAL BILIRUBIN 0.5 mg/dL (0.2-1.0); TOTAL PROTEIN 7.4 g/dL (6.4-8.2)
--- NOTE | 2019-02-07 16:27 | RAD ---
Exam: CT abdomen and pelvis without contrast INDICATION: Abdominal pain TECHNIQUE: Sequential axial images through the abdomen and pelvis obtained without IV contrast. Sagittal and coronal reformatted images were reconstructed from the axial data and reviewed. Comparisons: PET/CT 02/02/2019, FINDINGS: Heart is enlarged. Pacer with leads terminating in the right atrium and ventricle. Trivessel coronary artery calcifications are noted. No pericardial effusion. Strandy opacity at the right lower lobe likely representing atelectasis or scarring. Evaluation of the solid organs is limited secondary to noncontrast technique. Ill-defined hypoattenuating liver masses in the right hepatic lobe largest measuring approximately 6.0 x 4.9 cm. These appear similar when compared to the recent prior exam. Gallstones within the gallbladder. Spleen is not enlarged. Pancreas and adrenals are unremarkable. No renal or ureteral calculi. No perinephric inflammation or hydronephrosis. Bladder is distended and appears thin walled. Prostate is not enlarged. Postsurgical changes of the sigmoid colon are noted. Remainder of the large and small bowel are unremarkable. No obstruction. No free intra-abdominal air or fluid. 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 Several enlarged left periaortic lymph nodes are noted. Multiple enlarged conglomerate rhina hepatic lymph nodes are also noted. No suspicious osseous lesion or acute fracture. Sternotomy wires again noted. IMPRESSION: 1. Redemonstration of metastatic disease in the abdomen which is not significant change from the PET scan from 5 days prior with large hypodense hepatic masses rhina hepatic and left periaortic lymphadenopathy area 2. No acute process identified within the abdomen or pelvis. Exposure: One or more of the following in the visualized dose reduction techniques were utilized for this examination: 1. Automated exposure control 2. Adjustment of the MA and/or KV according to patient size 3. Use of iterative of reconstructive technique Electronically signed by: Jing Reynolds MD (02/07/2019 4:23 PM) [facility]
== END 2019-02-07 17:26 | disposition home or self-care (01) ==
LOC: ER 14:30
DX: R10.9 Unspecified abdominal pain (principal); R11.0 Nausea; F41.9 Anxiety disorder, unspecified; K21.9 Gastro-esophageal reflux disease without esophagitis; E78.00 Pure hypercholesterolemia, unspecified; I10 Essential (primary) hypertension; Z95.0 Presence of cardiac pacemaker; Z90.89 Acquired absence of other organs; Z95.5 Presence of coronary angioplasty implant and graft
CPT/HCPCS: 36415; 74176; 80053; 85025; 99285